=== PATIENT | female | born 1940 | race African-American/Black ===

== ENCOUNTER 2017-07-16 08:08 | Day surgery (SDC) | payer MEDICARE, OTHER ==
--- NOTE | 2017-07-12 09:04 | Pre-Procedure Note/Attestation ---
Pre-Procedure Note/Attestation Complete Prior to Procedure Planned Procedure: left Procedure Narrative: PHACO WITH IOL, OS Indications for Procedure Pre-Operative Diagnosis: CATARACT Attestation I attest that I discussed the nature of the procedure; its benefits; risks and complications; and alternatives (and the risks and benefits of such alternatives ), prior to the procedure, with the patient (or the patient's legal enrollment eligibility representative). I attest that, if there was a reasonable possibility of needing a blood transfusion, the patient (or the patient's legal enrollment eligibility representative) was given the [facility] standardized written summary, pursuant to the Jarrod [place]ena Blood Safety Act ([place] Health and Safety Code # 1645, as amended). I attest that I re-evaluated the patient just prior to the surgery and that there has been no change in the patient's H&P, except as documented below: ROCHELLE ROWLEY Jul 12, 2017 09:04
--- NOTE | 2017-07-12 09:07 | Opthalmology H&P ---
Ophthalmology H&P H&P Chief Complaint: decreased vision in left eye HPI Vision Affects Ability to: read, focus/use eyes together, manage personal affairs HPI Narrative BLURRY VISION Exam Visual Acuity: OD; 20/25 OS; 20/60 Tension: OD; 19 OS; 19 Eye Exam: normal OU: external exam, palpebral fissure-width, marginal reflex distance, levator function, corneas, anterior chambers, fundus exam, findings: lens - OD; CORTICAL OS; CORTICAL Assessment/Plan Diagnosis: (1) Cataract Treatment Plan: cataract extraction w/ lens implant Goals of Treatment: improvement of vision, enhance quality of life Attestation Attestation The risks and benefits of the surgery as well as alternative procedures were explained to the patient in detail. ROCHELLE ROWLEY Jul 12, 2017 09:07
[~2017-07-16] VITALS: Ht 160 cm; Wt 70.8 kg
[2017-07-16] VITALS (9 sets, daily range): BP systolic 111–129; BP diastolic 55–72
[~2017-07-16 08:08] MED LIST: ADALAT10 MG ORAL; ALBUTEROL SULF8.5 GM INH; ASPIR 8181 MG ORAL; ATORVASTATIN CA40 MG ORAL; Akten 3.5% 1ml Btl LEFT EYE ONE; CALCIUM + VITA1 EAC1 PO; DULERA 100 MCG/13 GM INH; LOSARTAN POTASS25 MG ORAL; PANTOPRAZOLE SO40 MG ORAL; Proparacaine 0.5% Opth Soln 15ml LEFT EYE ONE
[2017-07-16] MEDS ORDERED: Tetracaine 0.5% Opth 4ml Soln LEFT EYE ONE (09:00)
[2017-07-16] MEDS: Phenylephrine 10% Opth Soln 5ml LEFT EYE SCH ×3 (09:10→09:33)
[2017-07-16] MEDS: Tobramycin Op Soln 0.3% 5ml LEFT EYE SCH ×3 (09:10→09:34)
[2017-07-16] MEDS: Tropicamide 1% Opth 15ml Soln LEFT EYE SCH ×3 (09:10→09:33)
[2017-07-16] MEDS: Cyclopentolate 1% Opth Sol 2ml LEFT EYE SCH ×3 (09:11→09:33)
[2017-07-16] MEDS ORDERED: Dexamethasone 4mg/ml vial ONE (09:30)
[2017-07-16] MEDS ORDERED: EPINEPHrine 1mg/1ml Amp ONE (09:30)
[2017-07-16] MEDS ORDERED: Maxitrol Opth Oint 3.5gm ONE (09:30)
[2017-07-16] MEDS ORDERED: BSS 500ml btl ONE (09:30)
[2017-07-16] MEDS ORDERED: Pred Forte 1% Opth Susp 1ml ONE (09:30)
[2017-07-16] MEDS ORDERED: Sterile Water 10ml Vial ONE (09:30)
[2017-07-16] MEDS ORDERED: Midazolam 2mg/2ml Inj ONE (11:30)
[2017-07-16] MEDS ORDERED: NS Irrig 1000ml ONE (11:30)
[2017-07-16] MEDS ORDERED: LR 1000ml ONE (11:30)
[2017-07-16] MEDS ORDERED: Sterile Water Irrig 1000ml IRRIG ONE (11:30)
[2017-07-16] MEDS ORDERED: fentaNYL 100 mcg/2 mL IV ONE (11:30)
--- NOTE | 2017-07-16 12:10 | Immediate Post-Op Evaluation ---
Immediate Post-Op Evalulation Immediate Post-Op Evalulation Procedure: left eye cataract extraction Date of Evaluation: Jul 16, 2017 Time of Evaluation: 12:07 IV Fluids: 300 Blood Pressure Systolic: 126 Blood Pressure Diastolic: 70 Pulse Rate: 36 Respiratory Rate: 01 O2 Sat by Pulse Oximetry: 100 Temperature (Fahrenheit): 97.3 Pain Score (1-10): 0 Nausea: No Vomiting: No Complications none Patient Status: awake, reacts Hydration Status: adequate Drug: none ALISSA VIDES CRNA Jul 16, 2017 12:10
--- NOTE | 2017-07-16 12:11 | Anethesia Preoperative Eval ---
Anesthesia Pre-op PMH/ROS General Date of Evaluation: Jul 16, 2017 Time of Evaluation: 11:25 Anesthesiologist: katharine ASA Score: ASA 3 Mallampati Score Class I : Soft palate, uvula, fauces, pillars visible Class II: Soft palate, uvula, fauces visible Class III: Soft palate, base of uvula visible Class IV: Only hard plate visible Mallampati Classification: Class III Surgeon: wilner Diagnosis: cataract Surgical Procedure: cataract extraction Anesthesia History: none Family History: no anesthesia problems Allergies: Coded Allergies: No Known Allergies (Unverified , 07/12/17) Medications: see eMAR Past Medical History Cardiovascular: Reports: HTN Pulmonary: Reports: COPD Gastrointestinal/Genitourinary: Reports: GERD Neurologic/Psychiatric: Denies: dementia, CVA, depression/anxiety, TIA, other Endocrine: Denies: DM, hypothyroidism, steroids, other HEENT: Denies: cataract (L), cataract (R), glaucoma, [place] (L), [place] (R), other Hematology/Immune: Reports: other - lung ca Musculoskeletal/Integumentary: Denies: OA, RA, DJD, DDD, edema, other Anesthesia Pre-op Phys. Exam Physician Exam Last Vital Signs Date Time Temp Pulse Resp B/P (MAP) Pulse Ox O2 Delivery O2 Flow Rate FiO2 07/16/17 09:21 97.7 68 20 111/63 97 Room Air Constitutional: NAD Neurologic: CN 2-12 intact Cardiovascular: RRR Gastrointestinal: S/NT/ND Airway Exam Mallampati Classification 3 Mallampati Score: Class III MO: full ROM: full Dentures: no upper, no lower Anesthesia Pre-op A/P Studies Pre-op Studies: EKG - sr Risk Assessment & Plan Assessment: denies sob cp Plan: mac Status Change Before Surgery: No Pre-Antibiotics Drug: none ALISSA VIDES CRNA Jul 16, 2017 12:11
--- NOTE | 2017-07-16 13:32 | 48 Hour Post Anesthesia Eval ---
Post Anesthesia Evaluation Procedure: left eye cataract extraction Date of Evaluation: Jul 16, 2017 Time of Evaluation: 13:32 Blood Pressure Systolic: 115 0: 69 Pulse Rate: 70 Respiratory Rate: 14 O2 Sat by Pulse Oximetry: 99 Airway: patent Nausea: No Vomiting: No Hydration Status: adequate Cardiopulmonary Status: stable Mental Status/LOC: patient returned to baseline Post-Anesthesia Complications: na Follow-up care needed: N/A ALISSA VIDES CRNA Jul 16, 2017 13:32
[2017-07-16] MEDS ORDERED: Sodium Hyaluronate 14 mg/ml 0.85ml ONE (14:08)
[2017-07-16] MEDS ORDERED: BSS 15ml BTL ONE (14:08)
[2017-07-16] MEDS ORDERED: Povidone-Iodine 5% opth solution ONE (14:08)
--- NOTE | 2017-07-16 15:23 | Brief Operative Note ---
Immediate Post Operative Note Operative Note Chief Complaint: blurry vision Pre-op Diagnosis: CATARACT, Os Procedure: phaco with IOL, OS Post-op Diagnosis: pseudophakia Post-op Diagnosis: same as pre-op Findings: consistent w/pre-op dx studies Surgeon: Yomaira Anesthesiologist: Tish Anesthesia: MAC Specimen: none Complications: none Condition: stable Fluids: LR Estimated Blood Loss: none Drains: none Implant(s) used?: Yes ROCHELLE ROWLEY Jul 16, 2017 15:23
--- NOTE | 2017-07-16 15:24 | Operative Note - PDOC ---
Operative Note Operative Note Date of Operation/Procedure: Jul 16, 2017 Chief Complaint: blurry vision Pre-op Diagnosis: CATARACT, Os Procedure: phaco with IOL, OS Post-op Diagnosis: pseudophakia Post-op Diagnosis: same as pre-op Operative Findings: consistent w/pre-op dx studies Surgeon: Yomaira Anesthesiologist: Tish Anesthesia: MAC Specimen: none Complications: none Condition: stable Fluids: LR Estimated Blood Loss: none Drains: none Implant(s) used?: Yes Indications for Procedure cataract Description of Procedure This patient has been complaining visually significant cataract in the affected eye with the best corrected visual acuity under moderate glare conditions worse. The patient complains of difficulties with glare in performing activities of daily living and wants to manage personal affairs with comfort and accuracy and see well enough to move with safety at home and outdoors. The risks, benefits and alternatives of the procedure were discussed with the patient in the office prior to scheduling surgery. All questions from the patient were answered after the surgical procedure was explained in detail. The risks of the procedure as explained to the patient include, but are not limited to, pain, infection, bleeding, loss of vision, retinal detachment, need for further surgery, loss of lens nucleus, double vision, etc. Alternative procedures were discussed which include, to do nothing or seek a second opinion. Informed consent for this procedure was obtained from the patient. The patient was referred to a primary care physician for a cardiopulmonary clearance prior to surgery, after proper evaluation was done patient was properly scheduled for outpatient surgery. The patient was brought to the operating room where the anesthesiologist established I.V. lines and cardiac monitoring leads. Mild intravenous sedation was administered. The patient was then prepared with a 5% solution of povidone -iodine to the conjunctival fornix and lashes, and a 5% solution of povidone- iodine to the lids and periorbital skin. The patient was then draped in the usual sterile fashion. A lid speculum was then placed in the operative eye. A keratome blade was then used to create a biplanar incision into the anterior chamber. Viscoelastics was then instilled into the anterior chamber. A capsulorrhexis was then fashioned with an utrata forceps then a BSS and a cannula were then used to hydrodissect and hydro delineate the lens. Paracentesis incision was made at 3 o'clock with sharp blade. The phacoemulsification unit, after being properly adjusted and tested, was then used to emulsify the nucleus followed by residual cortical material was aspirated with the irrigation and aspiration unit. Healon was then instilled into the anterior chamber. The corneal wound was then enlarged to the size of the optic with the maksim keratome blade. The intraocular lens was then inspected for right power and size and thought to be satisfactory. Then the lens was gently placed in the capsular bag. Positioning within the capsular bag was confirmed by direct visualization. Optic centration was accomplished with a Sins[place] hook. Viscoelastics was removed from the anterior chamber using the irrigation and aspiration unit. The corneal wound was then tested for leaks and none were found. The lid speculum were then removed. Sponge and needle counts were correct. An eye patch and shield were placed over the operative eye. The patient was taken to the recovery room in stable condition. There were no complications. The patient tolerated the procedure well. The patient was then transferred to the ambulatory surgery unit in stable and satisfactory condition , was given detailed written instructions and asked to follow up in the office the next day. Adonis CARREON JAMES Jul 16, 2017 15:24
== END 2017-07-16 13:30 | disposition home or self-care (01) ==
LOC: SUR 08:08
DX: H25.012 Cortical age-related cataract, left eye (principal); J44.9 Chronic obstructive pulmonary disease, unspecified; F17.210 Nicotine dependence, cigarettes, uncomplicated; E78.5 Hyperlipidemia, unspecified; I12.9 Hypertensive chronic kidney disease with stage 1 through stage 4 chronic kidney disease, or unspecified chronic kidney disease; N18.3 Chronic kidney disease, stage 3 (moderate); K21.9 Gastro-esophageal reflux disease without esophagitis; Z90.49 Acquired absence of other specified parts of digestive tract; Z86.11 Personal history of tuberculosis; Z85.118 Personal history of other malignant neoplasm of bronchus and lung; Z79.82 Long term (current) use of aspirin
CPT/HCPCS: 66984; J0171; J1100; J2250; J3010; J3370; J7120; V2632; 94003; 94150; A4216